=== PATIENT | female | born 1955 | race Two or more races ===

== ENCOUNTER → 2024-06-21 | Outpatient (CLI) | payer MEDICARE, MEDICAID, SELFPAY ==
--- NOTE | 2024-06-21 13:30 | XR_ITS ---
Examination: Screening digital mammography, bilateral Computer aided detection 3-D breast Tomosynthesis, bilateral Date and time of exam: June 21, 2024 1319 hours Compared to mammograms dating to November 30, 2012 Indication: Screening Technique: Nonmagnified MLO, CC views of the breasts to been obtained, reconstructed from 3-D Tomosynthesis images. R2 computer aided detection program utilized for evaluation of suspicious masses and/or abnormal calcifications. 3-D Tomosynthesis images obtained. Findings: Scattered areas of fibroglandular density Stable scar formation right breast consistent with patient's history treated right breast cancer No interval suspicious masses Impression: BI-RADS category II: Benign Findings. Recommend 1 year follow-up mammogram.
--- NOTE | 2024-06-21 13:45 | XR_ITS ---
Examination: Bone densitometry Date and time of exam:June 21, 2024 1344 hours INDICATIONS: Menopause age 53 family history sister osteoporosis personal history breast cancer Technique: Lumbar spine and hip total bone mineralization values of an calculated. Peak reference and age match control results have been displayed. Findings: Lumbar spine total bone mineralization is0.677 gm/cm2. This is 3.4 standard deviations below peak reference. This is 1.2 standard deviations below age-matched controls. Hip total bone mineralization is 0.599 gm/cm2 This is 2.7 standard deviations below peak reference. This is 1.2 standard deviations below age-matched controls Impression: There is osteoporosis based on lumbar spine measurements. There is osteoporosis based on hip measurements
[2024-06-21 14:43] LABS: Free T4 (Free Thyroxine) 1.11 ng/dL (0.89-1.76); Thyroid Stimulating Hormone 6.94 uIU/mL (0.55-4.78)
== END | disposition home or self-care (01) ==
LOC: CDIM 13:08 → COPL 13:48
PROVIDERS: Referring Provider Nurse Practitioner Family; Visit Provider Radiology Diagnostic Radiology
DX: Z12.31 Encounter for screening mammogram for malignant neoplasm of breast (principal); R92.323 Mammographic fibroglandular density, bilateral breasts; M81.8 Other osteoporosis without current pathological fracture; E03.9 Hypothyroidism, unspecified
CPT/HCPCS: 36415; 77063; 77067; 77080; 84439; 84443

== ENCOUNTER → 2024-12-29 | Outpatient (CLI) | payer MEDICARE, MEDICAID, SELFPAY ==
--- NOTE | 2024-12-29 15:30 | XR_ITS ---
Examination: Thyroid sonography complete TECHNIQUE: [place] scale sonographic images thyroid levels. Date and time: December 29, 2024, 1517 hours INDICATIONS: Abnormal thyroid function tests on laboratory examination performed 1 month ago. FINDINGS: Right thyroid 4.0 cm Upper pole cyst 3 x 2 mm Midpole nodule 5 by 6 mm The thyroid is 3.7 cm No thyroid nodules IMPRESSION: Small midpole right thyroid nodule
== END | disposition home or self-care (01) ==
PROVIDERS: PCP Family Medicine; Referring Provider Family Medicine; Visit Provider Family Medicine
DX: E04.1 Nontoxic single thyroid nodule (principal)
CPT/HCPCS: 76536